=== PATIENT | female | born 1995 | race Caucasian/White ===

== ENCOUNTER 2021-08-08 13:59 | Emergency (ER) | payer OTHER ==
[~2021-08-08] VITALS: Ht 167.6 cm; Wt 56.0 kg
[2021-08-08 14:14] VITALS: BP 117/67
[2021-08-08] MEDS ORDERED: LIDOcaine 1.5% w/epinephrine 1:200,000 5ml ampul IJ ONE (16:20)
[2021-08-08] MEDS ORDERED: LORazepam 2 mg/ml vial IM ONE (16:20)
[2021-08-08] MEDS ORDERED: LIDOcaine 1% w/EPI 1:100,000 30ml vial (MDV) IJ ONE (16:35)
--- NOTE | 2021-08-08 16:54 | NUR ---
PARTIAL DOSE ON ATIVAN WASTED WITH PAULINO FRIEDMAN.
== END 2021-08-08 18:11 | disposition home or self-care (01) ==
LOC: ER 13:59
DX: S61.411A Laceration without foreign body of right hand, initial encounter (principal); Z91.040 Latex allergy status; W25.XXXA Contact with sharp glass, initial encounter; Y93.89 Activity, other specified; Y92.89 Other specified places as the place of occurrence of the external cause; Y99.8 Other external cause status
CPT/HCPCS: 12001; 96372; 99283; J2060; J3490

== ENCOUNTER 2021-08-18 17:52 | Emergency (ER) | payer OTHER | END 2021-08-18 19:19 | disposition left against medical advice (07) | LOC: ER 17:53 | DX: Z48.02 Encounter for removal of sutures (principal); Z53.21 Procedure and treatment not carried out due to patient leaving prior to being seen by health care provider ==

== ENCOUNTER 2022-07-04 15:20 | Emergency (ER) | payer MEDICAID, OTHER ==
[~2022-07-04] VITALS: Ht 167.6 cm; Wt 50.0 kg
[2022-07-04 15:24] VITALS: BP 110/67
[2022-07-04] MEDS ORDERED: ALBU8HFA PO ×3 (17:15→18:40)
[2022-07-04] MEDS ORDERED: GUAI400T92 PO ×3 (17:15→18:40)
[2022-07-04] MEDS ORDERED: AZIT-31 PO ×3 (17:15→18:40)
== END 2022-07-04 17:41 | disposition home or self-care (01) ==
LOC: ER 15:20
DX: J01.00 Acute maxillary sinusitis, unspecified (principal); Z20.822 Contact with and (suspected) exposure to COVID-19; Z91.040 Latex allergy status; Z79.1 Long term (current) use of non-steroidal anti-inflammatories (NSAID)
CPT/HCPCS: 71046; 87635; 99284; C9803